=== PATIENT | male | born 1950 | race Caucasian/White ===

== ENCOUNTER → 2018-05-29 11:44 | Outpatient (CLI) | payer OTHER, SELFPAY ==
--- NOTE | 2018-05-29 | DI.MRI.S_ITS ---
PROCEDURE: MR HEAD/BRAIN WO CON INDICATIONS: PARESTHESIA OF SKIN TECHNIQUE: Non-contrast axial T1 spin echo, axial T2 fast spin echo, sagittal and axial FLAIR, coronal T2 fast spin echo, axial gradient echo, axial diffusion and ADC through the brain. COMPARISON: None. FINDINGS: Image quality: Excellent. CSF spaces: Ventricles appear symmetric in size and shape. Basal cisterns are patent. No extra-axial fluid collections. Brain: No intracranial bleeds or mass effects. There are several foci of T2 hyperintensity in the periventricular and deep white matter, compatible with chronic small vessel ischemic changes. Brainstem appears normal. Diffusion-weighted images show no acute ischemic insults. No chronic ischemic insults. Normal intravascular flow voids are present. Skull and face: Calvarial bone marrow is normal in signal. Orbits are normal. Sinuses: There is mucosal thickening and air-fluid level in the right maxillary sinus. There is fluid in the right mastoids. IMPRESSION: 1. No acute intracranial abnormalities. 2. Mild chronic microvascular ischemic changes. 3. Right maxillary sinusitis. 4. Fluid in the right mastoids. Recommend clinical correlation for mastoiditis. Dictated by: Rose Mraie Peraza M.D. on 05/29/2018 at 13:33 Approved by: Rose Marie Peraza M.D. on 05/29/2018 at 18:04
== END ==
PROVIDERS: PCP Family Medicine Geriatric Medicine; Visit Provider Family Medicine Geriatric Medicine
DX: R20.2 Paresthesia of skin (principal); I67.82 Cerebral ischemia; J32.0 Chronic maxillary sinusitis
CPT/HCPCS: 70551

== ENCOUNTER → 2018-06-03 19:24 | Outpatient (REF) | payer OTHER, SELFPAY ==
[2018-06-03 19:49] LABS: Hematocrit 34.7 % (41-53); Hemoglobin 11.5 g/dL (13.5-17.5); Mean Corpuscular Hemoglobin 26.4 PG (26-34); Mean Corpuscular Volume 79.9 fL (80-100); Platelet Count 90 X10^3/uL (150-400); Red Blood Cell Count 4.35 X10^6/uL (4.5-5.9); Red Cell Distribution Width 15.9 % (11.6-14.8); White Blood Cell Count 10.9 X10^3/uL (4.5-11.0)
[2018-06-03 19:54] LABS: Add Manual Diff / Slide Review YES
[2018-06-03 20:12] LABS: Erythrocyte Sedimentation Rate 119 MM/HR (0-15)
[2018-06-03 20:22] LABS: Neutrophils Absolute Manual 6104 /uL (3000-5900); Total Cells Counted 100
[2018-06-03 20:23] LABS: Anisocytosis 1+; Hemoglobin A1C% w Est Avg Glu 9.2 % (4.0-6.0)
[2018-06-03 20:25] LABS: Creatinine Urine Random 168.4 mg/dL
[2018-06-03 20:26] LABS: Alanine Aminotransferase 36 IU/L (21-72); Albumin 3.4 g/dL (3.5-5.0); Albumin Globulin Ratio 1.1 (1.0-2.8); Alkaline Phosphatase 283 U/L (38-126); Aspartate Aminotransferase 75 IU/L (17-59); BUN Creatinine Ratio 28.3 (6-22); Bilirubin Total 0.5 mg/dL (0.2-1.3); Blood Urea Nitrogen 34 mg/dL (9-20); Calcium 10.9 mg/dL (8.4-10.2); Carbon Dioxide 30 mmol/L (22-32); Chloride 94 mmol/L (98-107); Cholesterol 94 mg/dL (140-199); Estimated Glomerular Filt Rate > 60.0 mL/min (>60); Globulin 3.2 g/dL (1.7-4.1); Glucose 245 mg/dL (80-110); HDL Cholesterol 27 mg/dL (40-60); HEMOLYSIS < 15 (0-50); LDL Cholesterol Calculated 36 mg/dL (<100); Potassium 3.8 mmol/L (3.4-5.1); Sodium 136 mmol/L (137-145); Total Protein 6.6 g/dL (6.3-8.2); Triglycerides 153 mg/dL (35-150)
[2018-06-03 20:42] LABS: Thyroid Stimulating Hormone 4.04 uIU/mL (0.47-4.68)
[2018-06-03 20:43] LABS: Microalbumi Creatinin Ratio Ur 327.1 ug/mg CR (<30); Microalbumin Urine Random 55.1 mg/dL (0-1.6)
[2018-06-03 20:49] LABS: Prostate Specific Antigen 0.735 ng/mL (0.10-4.00)
[2018-06-03 20:50] LABS: C-Reactive Protein Quant 31.8 mg/dL (<1.0)
[2018-06-03 21:08] LABS: Vitamin B12 234 pg/mL (239-931)
== END ==
LOC: LAB 19:24
PROVIDERS: PCP Family Medicine Geriatric Medicine; Visit Provider Family Medicine Geriatric Medicine
DX: R22.2 Localized swelling, mass and lump, trunk (principal); R63.4 Abnormal weight loss; N45.2 Orchitis; E11.9 Type 2 diabetes mellitus without complications; I10 Essential (primary) hypertension; Z13.29 Encounter for screening for other suspected endocrine disorder
CPT/HCPCS: 36415; 80053; 80061; 82043; 82570; 82607; 83036; 84153; 84443; 85025; 85651; 86140